=== PATIENT | female | born 1955 | race Hispanic/Latino ===

== ENCOUNTER 2021-03-29 23:37 | Inpatient (IN) | payer OTHER ==
[~2021-03-29] VITALS: Ht 160 cm; Wt 62.7 kg
[~2021-03-29 23:37] MED LIST: AMLO5TAB4 PO; DEXA6TAB PO; PANT40TA PO
[2021-03-30] VITALS (9 sets, daily range): BP systolic 142–177; BP diastolic 77–96
[2021-03-30] MEDS ORDERED: PANTOPRAZOLE 40 MG/VIAL IVP SCH (00:45)
[2021-03-30] MEDS ORDERED: ONDANSETRON HCL 4 MG/2 ML VIAL IVP SCH (00:45)
[2021-03-30] MEDS ORDERED: SODIUM CHLORIDE 0.9% 500ML 500 ML IV SCH (00:45)
[2021-03-30 01:00] LABS: BASOPHILS % (AUTO) 0.3 % (0.0-5.0); EOSINOPHILS % (AUTO) 2.4 % (0.0-8.0); HEMATOCRIT 22.1 % (36-48); LYMPHOCYTES % (AUTO) 18.7 % (21.0-51.0); MEAN CORPUSCULAR HEMOGLOBIN 26.5 pg (27.0-33.0); MEAN CORPUSCULAR HGB CONC 32.1 g/dL (32.0-36.0); MEAN CORPUSCULAR VOLUME 82.5 fL (79-99); MONOCYTES % (AUTO) 7.2 % (3.0-13.0); PLATELET COUNT (AUTO) 312 K/uL (130-400); RED BLOOD CELL COUNT(AUTO) 2.68 MIL/uL (4.00-5.50); WHITE BLOOD COUNT (AUTO) 9.2 K/uL (4.8-10.8)
[2021-03-30 01:06] LABS: CREATININE 4.7 mg/dL (0.5-1.5); POTASSIUM 4.8 mmol/L (3.5-5.1)
[2021-03-30 01:10] LABS: BILIRUBIN,TOTAL 0.2 mg/dL (0.2-1.0); MAGNESIUM 1.9 mg/dL (1.80-2.40); TOTAL PROTEIN, SERUM 6.8 g/dL (6.0-8.3)
[2021-03-30 01:14] LABS: APPEARANCE,URINE Clear (CLEAR); BILIRUBIN,URINE Negative (NEGATIVE); COLOR,URINE Yellow (YELLOW); GLUCOSE, URINE (UA) TRACE mg/dL (NEGATIVE); KETONES,URINE Negative (NEGATIVE); LEUKOCYTE ESTERASE ,URINE Negative (NEGATIVE); NITRATE,URINE Negative (NEGATIVE); OCCULT BLOOD,URINE Negative (NEGATIVE); PH,URINE 5.5 (5.0-8.0); PROTEIN,URINE 300 mg/dL (NEGATIVE); UROBILINOGEN,URINE 0.2 mg/dL (0.2-1.0)
[2021-03-30 01:43] LABS: BACTERIA,URINE Few /HPF (None Seen); RBC,URINE 0-1 /HPF (0-1); SQUAMOUS EPITHELIAL CELL,UR 0-2 /HPF (0-2); WBC,URINE 0-1 /HPF (0-1)
[2021-03-30 05:29] LABS: HEMATOCRIT 22.7 % (36-48); MEAN CORPUSCULAR HEMOGLOBIN 26.3 pg (27.0-33.0); MEAN CORPUSCULAR HGB CONC 32.2 g/dL (32.0-36.0); MEAN CORPUSCULAR VOLUME 81.7 fL (79-99); RED BLOOD CELL COUNT(AUTO) 2.78 MIL/uL (4.00-5.50); RED CELL DISTRIBUTION WIDTH 13.8 % (11.0-15.5)
[2021-03-30 05:49] LABS: ALBUMIN 1.8 g/dL (3.5-5.0); BILIRUBIN,TOTAL 0.2 mg/dL (0.2-1.0); CREATININE 4.1 mg/dL (0.5-1.5); POTASSIUM 4.4 mmol/L (3.5-5.1); TOTAL PROTEIN, SERUM 7.4 g/dL (6.0-8.3)
[2021-03-30] MEDS ORDERED: CEFTRIAXONE SODIUM 1 GM IVP SCH (08:55)
[2021-03-30] MEDS: FAMOTIDINE/PF 20 MG/2 ML VIAL IV SCH ×2 (09:00→20:31)
[2021-03-30] MEDS ORDERED: BACL10TA PO (10:36)
[2021-03-30] MEDS ORDERED: TRAM50TA4 PO (10:36)
[2021-03-30] MEDS ORDERED: AMLODIPINE BESYLATE 5 MG TAB PO SCH (11:15)
[2021-03-31] VITALS: BP 157/79
[2021-03-31 03:53] VITALS: BP 146/85
[2021-03-31 08:00] VITALS: BP 159/80
[2021-03-31 08:18] VITALS: BP 159/80
[2021-03-31] MEDS: AMLODIPINE BESYLATE 5 MG TAB PO SCH (08:21)
[2021-03-31] MEDS: PANTOPRAZOLE SODIUM 40 MG TABLET.DR PO SCH (08:21)
[2021-03-31] MEDS: FAMOTIDINE/PF 20 MG/2 ML VIAL IV SCH (08:21)
[2021-03-31] MEDS ORDERED: PREG150C PO (08:30)
[2021-03-31] MEDS ORDERED: INSLAN SQ (08:30)
[2021-03-31] MEDS ORDERED: LOSA1TAB54 PO (08:30)
[2021-03-31] MEDS ORDERED: DULA0.75 SQ (08:30)
[2021-03-31] MEDS ORDERED: ATOR40TA71 PO (08:30)
[2021-03-31 12:25] LABS: HEMATOCRIT 23.4 % (36-48); MEAN CORPUSCULAR HEMOGLOBIN 26.3 pg (27.0-33.0); MEAN CORPUSCULAR HGB CONC 32.5 g/dL (32.0-36.0); PLATELET COUNT (AUTO) 334 K/uL (130-400); RED BLOOD CELL COUNT(AUTO) 2.89 MIL/uL (4.00-5.50); RED CELL DISTRIBUTION WIDTH 13.6 % (11.0-15.5); WHITE BLOOD COUNT (AUTO) 8.6 K/uL (4.8-10.8)
[2021-03-31 12:53] LABS: % IRON SATURATION 27.5 % (22-44)
[2021-03-31] MEDS: DOCUSATE SODIUM 100 MG CAP PO SCH ×2 (13:01→20:28)
[2021-03-31] MEDS: BISACODYL 5 MG TABLET.DR PO SCH ×2 (13:01→20:28)
[2021-03-31 13:10] LABS: BAND NEUTROPHILS % (MANUAL) 1 % (0-2); LYMPHOCYTES % (MANUAL) 18 % (22-44); MAN.DIFF COMMENT-IMPRESSION MANUAL DIFFERENTIAL; MONOCYTES % (MANUAL) 7 % (2-9); PLATELET MORPHOLOGY COMMENT ADEQUATE; SEGMENTED NEUTROPHILS % 74 % (40-70)
[2021-03-31 13:30] LABS: THYROID STIMULATING HORMONE 2.48 uIU/mL (0.36-3.74)
[2021-03-31 16:00] VITALS: BP 118/75
[2021-03-31] MEDS ORDERED: COMPOUND IV MISC 1 EACH IVSOLN MISC PRN (18:00)
[2021-03-31] MEDS: IRON SUCROSE COMPLEX 300 MG in SODIUM CHLORIDE 0.9% 250 ML IV SCH (18:29)
[2021-03-31 20:00] VITALS: BP_SYST 148; BP_SYST 149; BP_DIAS 81; BP_DIAS 84
[2021-03-31] MEDS ORDERED: EPOETIN ALFA-EPBX (NON-ESRD) 10,000 UNIT/ML VIAL SQ ONE (21:00)
[2021-03-31] MEDS ORDERED: ACETAMINOPHEN 325 MG TAB ONE (23:40)
[2021-04-01] VITALS (7 sets, daily range): BP systolic 126–176; BP diastolic 73–86
[2021-04-01] MEDS: ACETAMINOPHEN 325 MG TAB PO PRN ×3 (04:34→23:46)
[2021-04-01 04:45] LABS: BASOPHILS % (AUTO) 0.3 % (0.0-5.0); HEMATOCRIT 25.3 % (36-48); LYMPHOCYTES % (AUTO) 24.3 % (21.0-51.0); MEAN CORPUSCULAR HEMOGLOBIN 25.9 pg (27.0-33.0); MEAN CORPUSCULAR HGB CONC 32.4 g/dL (32.0-36.0); MEAN CORPUSCULAR VOLUME 79.8 fL (79-99); NEUTROPHILS % (AUTO) 63.7 % (40.0-77.0); PLATELET COUNT (AUTO) 379 K/uL (130-400); RED BLOOD CELL COUNT(AUTO) 3.17 MIL/uL (4.00-5.50); RED CELL DISTRIBUTION WIDTH 13.5 % (11.0-15.5); WHITE BLOOD COUNT (AUTO) 9.1 K/uL (4.8-10.8)
[2021-04-01 04:57] LABS: ALBUMIN 1.9 g/dL (3.5-5.0); CREATININE 4.5 mg/dL (0.5-1.5); PHOSPHORUS 5.9 mg/dL (2.5-4.9); POTASSIUM 4.1 mmol/L (3.5-5.1)
[2021-04-01] MEDS: BISACODYL 5 MG TABLET.DR PO SCH ×2 (08:50→21:11)
[2021-04-01] MEDS: AMLODIPINE BESYLATE 5 MG TAB PO SCH (08:50)
[2021-04-01] MEDS: PANTOPRAZOLE SODIUM 40 MG TABLET.DR PO SCH (08:51)
[2021-04-01] MEDS: DOCUSATE SODIUM 100 MG CAP PO SCH ×2 (08:51→21:11)
[2021-04-01] MEDS ORDERED: EPOETIN ALFA-EPBX (NON-ESRD) 10,000 UNIT/ML VIAL SQ SCH (11:00)
[2021-04-01] MEDS: IRON SUCROSE COMPLEX 300 MG in SODIUM CHLORIDE 0.9% 250 ML IV SCH (13:42)
[2021-04-01] MEDS: INSULIN HUMULIN R 100 UNIT/ML 3ML SQ SCH ×2 (16:30→21:00)
[2021-04-01] MEDS: FAMOTIDINE 20MG TAB 20 MG TAB PO SCH (21:11)
[2021-04-02] VITALS (7 sets, daily range): BP systolic 120–182; BP diastolic 73–103
[2021-04-02 04:26] LABS: BASOPHILS % (AUTO) 0.4 % (0.0-5.0); EOSINOPHILS % (AUTO) 0.3 % (0.0-8.0); HEMATOCRIT 25.1 % (36-48); LYMPHOCYTES % (AUTO) 14.3 % (21.0-51.0); MEAN CORPUSCULAR HEMOGLOBIN 25.8 pg (27.0-33.0); MEAN CORPUSCULAR HGB CONC 32.7 g/dL (32.0-36.0); MEAN CORPUSCULAR VOLUME 78.9 fL (79-99); MONOCYTES % (AUTO) 5.8 % (3.0-13.0); NEUTROPHILS % (AUTO) 78.2 % (40.0-77.0); PLATELET COUNT (AUTO) 439 K/uL (130-400); RED BLOOD CELL COUNT(AUTO) 3.18 MIL/uL (4.00-5.50); RED CELL DISTRIBUTION WIDTH 13.6 % (11.0-15.5); WHITE BLOOD COUNT (AUTO) 11.3 K/uL (4.8-10.8)
[2021-04-02 04:42] LABS: CREATININE 4.7 mg/dL (0.5-1.5); POTASSIUM 4.3 mmol/L (3.5-5.1)
[2021-04-02 05:06] LABS: HEMOGLOBIN A1C 10.4 % (4.0-6.0)
[2021-04-02] MEDS: INSULIN HUMULIN R 100 UNIT/ML 3ML SQ SCH ×4 (07:30→20:14)
[2021-04-02] MEDS ORDERED: NON-FORMULARY MEDICATION 1 EACH (Losartan/Hydrochlorothiazide (Losartan-Hctz 100-25 mg Tab PO SCH (09:00)
[2021-04-02] MEDS: LIDOCAINE 5% TOPICAL PATCH TP SCH (09:26)
[2021-04-02] MEDS: DOCUSATE SODIUM 100 MG CAP PO SCH (09:26)
[2021-04-02] MEDS: BISACODYL 5 MG TABLET.DR PO SCH (09:26)
[2021-04-02] MEDS: AMLODIPINE BESYLATE 5 MG TAB PO SCH (09:26)
[2021-04-02] MEDS: METOPROLOL TARTRATE 25 MG TAB PO SCH ×2 (12:08→20:13)
[2021-04-02] MEDS: HYDRALAZINE HCL 10 MG TABLET PO SCH ×2 (15:14→20:14)
[2021-04-02] MEDS: FAMOTIDINE 20MG TAB 20 MG TAB PO SCH (20:14)
[2021-04-03] VITALS (21 sets, daily range): BP systolic 104–157; BP diastolic 65–81
[2021-04-03 04:31] LABS: BASOPHILS % (AUTO) 0.4 % (0.0-5.0); EOSINOPHILS % (AUTO) 2.2 % (0.0-8.0); HEMATOCRIT 21.7 % (36-48); LYMPHOCYTES % (AUTO) 31.6 % (21.0-51.0); MEAN CORPUSCULAR HEMOGLOBIN 26.2 pg (27.0-33.0); MEAN CORPUSCULAR HGB CONC 31.8 g/dL (32.0-36.0); MEAN CORPUSCULAR VOLUME 82.5 fL (79-99); MONOCYTES % (AUTO) 9.6 % (3.0-13.0); NEUTROPHILS % (AUTO) 54.4 % (40.0-77.0); NUCLEATED RED BLOOD CELLS 0.4 % (0.0-0.19); PLATELET COUNT (AUTO) 389 K/uL (130-400); RED BLOOD CELL COUNT(AUTO) 2.63 MIL/uL (4.00-5.50); RED CELL DISTRIBUTION WIDTH 14.2 % (11.0-15.5); WHITE BLOOD COUNT (AUTO) 9.1 K/uL (4.8-10.8)
[2021-04-03 04:49] LABS: CREATININE 4.8 mg/dL (0.5-1.5); POTASSIUM 3.7 mmol/L (3.5-5.1)
[2021-04-03] MEDS: INSULIN HUMULIN R 100 UNIT/ML 3ML SQ SCH ×4 (05:59→21:00)
[2021-04-03] MEDS ORDERED: SODIUM CHLORIDE 0.9% 250 ML ONE (09:41)
[2021-04-03] MEDS: METOPROLOL TARTRATE 25 MG TAB PO SCH ×2 (09:45→23:04)
[2021-04-03] MEDS: AMLODIPINE BESYLATE 5 MG TAB PO SCH (09:45)
[2021-04-03] MEDS: LIDOCAINE 5% TOPICAL PATCH TP SCH (09:46)
[2021-04-03] MEDS: HYDRALAZINE HCL 10 MG TABLET PO SCH ×3 (09:46→23:04)
[2021-04-03] MEDS ORDERED: PEG 3350/NA SULF,BICARB,CL/KCL 4000 ML SOLN PO SCH (14:15)
[2021-04-03] MEDS: ONDANSETRON HCL 4 MG/2 ML VIAL IV PRN (14:44)
[2021-04-03] MEDS ORDERED: LIDOCAINE HCL 1% MDV 50ML VIAL ONE (14:52)
[2021-04-03 16:09] LABS: HEMATOCRIT 27.6 % (36-48)
[2021-04-03] MEDS ORDERED: HEPARIN SODIUM 5000UNIT/ML 1ML VIAL ONE (18:04)
[2021-04-03] MEDS ORDERED: HEPARIN SODIUM 5000UNIT/ML 1ML VIAL SQ PRN (18:15)
[2021-04-03] MEDS: ACETAMINOPHEN 325 MG TAB PO PRN (19:28)
[2021-04-03] MEDS: FAMOTIDINE 20MG TAB 20 MG TAB PO SCH (23:04)
[2021-04-04] VITALS (33 sets, daily range): BP systolic 81–177; BP diastolic 42–96
[2021-04-04] MEDS: ONDANSETRON HCL 4 MG/2 ML VIAL IV PRN ×2 (03:00→10:35)
[2021-04-04 04:03] LABS: BASOPHILS % (AUTO) 0.7 % (0.0-5.0); EOSINOPHILS % (AUTO) 1.4 % (0.0-8.0); HEMATOCRIT 31.3 % (36-48); LYMPHOCYTES % (AUTO) 16.9 % (21.0-51.0); MEAN CORPUSCULAR HEMOGLOBIN 26.6 pg (27.0-33.0); MEAN CORPUSCULAR HGB CONC 32.3 g/dL (32.0-36.0); MEAN CORPUSCULAR VOLUME 82.4 fL (79-99); NEUTROPHILS % (AUTO) 70.4 % (40.0-77.0); NUCLEATED RED BLOOD CELLS 0.9 % (0.0-0.19); PLATELET COUNT (AUTO) 473 K/uL (130-400); RED CELL DISTRIBUTION WIDTH 13.9 % (11.0-15.5); WHITE BLOOD COUNT (AUTO) 12.9 K/uL (4.8-10.8)
[2021-04-04 04:28] LABS: CREATININE 3.9 mg/dL (0.5-1.5); PHOSPHORUS 4.5 mg/dL (2.5-4.9); POTASSIUM 3.8 mmol/L (3.5-5.1)
[2021-04-04] MEDS: INSULIN HUMULIN R 100 UNIT/ML 3ML SQ SCH ×4 (07:30→20:09)
[2021-04-04 08:50] LABS: HEMATOCRIT 27.8 % (36-48)
[2021-04-04] MEDS: LIDOCAINE 5% TOPICAL PATCH TP SCH (09:43)
[2021-04-04] MEDS: HYDRALAZINE HCL 10 MG TABLET PO SCH ×3 (09:43→20:58)
[2021-04-04] MEDS: METOPROLOL TARTRATE 25 MG TAB PO SCH ×2 (09:43→20:58)
[2021-04-04] MEDS: AMLODIPINE BESYLATE 5 MG TAB PO SCH (09:43)
[2021-04-04] MEDS ORDERED: LIDOCAINE HCL-MPF 2% 5ML VIAL ONE (11:25)
[2021-04-04] MEDS ORDERED: PROPOFOL 10 MG/ML 20ML VIAL IV ONE ×2 (11:25)
[2021-04-04] MEDS: SODIUM CHLORIDE 0.9% 1000ML 1,000 ML IV SCH (11:30)
[2021-04-04] MEDS ORDERED: EPHEDRINE SULFATE 50 MG/ML AMPULE ONE (12:07)
[2021-04-04 13:53] LABS: HEMATOCRIT 26.3 % (36-48)
[2021-04-05] VITALS (22 sets, daily range): BP systolic 110–149; BP diastolic 57–92
[2021-04-05 03:43] LABS: BASOPHILS % (AUTO) 0.5 % (0.0-5.0); HEMATOCRIT 25.5 % (36-48); LYMPHOCYTES % (AUTO) 20.4 % (21.0-51.0); MEAN CORPUSCULAR HEMOGLOBIN 26.2 pg (27.0-33.0); MEAN CORPUSCULAR HGB CONC 32.2 g/dL (32.0-36.0); MEAN CORPUSCULAR VOLUME 81.5 fL (79-99); MONOCYTES % (AUTO) 10.4 % (3.0-13.0); NEUTROPHILS % (AUTO) 65.7 % (40.0-77.0); NUCLEATED RED BLOOD CELLS 0.6 % (0.0-0.19); PLATELET COUNT (AUTO) 313 K/uL (130-400); RED BLOOD CELL COUNT(AUTO) 3.13 MIL/uL (4.00-5.50)
[2021-04-05 04:02] LABS: CREATININE 3.1 mg/dL (0.5-1.5); PHOSPHORUS 5.4 mg/dL (2.5-4.9); POTASSIUM 3.9 mmol/L (3.5-5.1)
[2021-04-05] MEDS: INSULIN HUMULIN R 100 UNIT/ML 3ML SQ SCH ×4 (06:37→21:00)
[2021-04-05] MEDS: SODIUM CHLORIDE 0.9% 1000ML 1,000 ML IV SCH (07:30)
[2021-04-05 08:14] LABS: HEPATITIS Bs ANTIGEN SCREEN P Negative (Negative)
[2021-04-05] MEDS: LIDOCAINE 5% TOPICAL PATCH TP SCH (09:54)
[2021-04-05] MEDS: AMLODIPINE BESYLATE 5 MG TAB PO SCH (09:55)
[2021-04-05] MEDS: METOPROLOL TARTRATE 25 MG TAB PO SCH ×2 (09:55→21:41)
[2021-04-05] MEDS: HYDRALAZINE HCL 10 MG TABLET PO SCH ×3 (09:55→21:41)
[2021-04-05] MEDS: PANTOPRAZOLE SODIUM 40 MG TABLET.DR PO SCH (09:55)
[2021-04-06 03:55] VITALS: BP 152/86
[2021-04-06] MEDS ORDERED: HYDROXYZINE HCL 25 MG TABLET ONE (04:54)
[2021-04-06] MEDS: HYDROXYZINE HCL 25 MG TABLET PO SCH ×2 (05:00→23:47)
[2021-04-06 05:02] LABS: BASOPHILS % (AUTO) 0.5 % (0.0-5.0); EOSINOPHILS % (AUTO) 0.9 % (0.0-8.0); HEMATOCRIT 28.7 % (36-48); LYMPHOCYTES % (AUTO) 20.8 % (21.0-51.0); MEAN CORPUSCULAR HEMOGLOBIN 26.8 pg (27.0-33.0); MEAN CORPUSCULAR HGB CONC 32.8 g/dL (32.0-36.0); MEAN CORPUSCULAR VOLUME 81.8 fL (79-99); MONOCYTES % (AUTO) 10.8 % (3.0-13.0); NEUTROPHILS % (AUTO) 64.8 % (40.0-77.0); NUCLEATED RED BLOOD CELLS 0.3 % (0.0-0.19); PLATELET COUNT (AUTO) 311 K/uL (130-400); RED BLOOD CELL COUNT(AUTO) 3.51 MIL/uL (4.00-5.50); RED CELL DISTRIBUTION WIDTH 14.1 % (11.0-15.5); WHITE BLOOD COUNT (AUTO) 11.9 K/uL (4.8-10.8)
[2021-04-06] MEDS: INSULIN HUMULIN R 100 UNIT/ML 3ML SQ SCH ×4 (05:27→21:00)
[2021-04-06 05:30] LABS: CREATININE 3.1 mg/dL (0.5-1.5); PHOSPHORUS 4.1 mg/dL (2.5-4.9); POTASSIUM 4.1 mmol/L (3.5-5.1)
[2021-04-06 07:16] VITALS: BP 116/71
[2021-04-06] MEDS: ACETAMINOPHEN 325 MG TAB PO PRN (09:00)
[2021-04-06] MEDS: LIDOCAINE 5% TOPICAL PATCH TP SCH (09:00)
[2021-04-06] MEDS: PANTOPRAZOLE SODIUM 40 MG TABLET.DR PO SCH (09:00)
[2021-04-06] MEDS: HYDRALAZINE HCL 10 MG TABLET PO SCH ×3 (09:00→21:35)
[2021-04-06] MEDS: AMLODIPINE BESYLATE 5 MG TAB PO SCH (09:01)
[2021-04-06] MEDS: METOPROLOL TARTRATE 25 MG TAB PO SCH ×2 (09:01→21:34)
[2021-04-06 11:16] VITALS: BP 91/59
[2021-04-06 15:57] VITALS: BP 125/67
[2021-04-06 19:55] VITALS: BP 148/83
[2021-04-06] MEDS: SODIUM CHLORIDE 0.9% 1000ML 1,000 ML IV SCH (23:30)
[2021-04-06 23:37] VITALS: BP 111/71
[2021-04-07 03:55] VITALS: BP 104/74
[2021-04-07 05:29] LABS: BASOPHILS % (AUTO) 0.8 % (0.0-5.0); EOSINOPHILS % (AUTO) 1.2 % (0.0-8.0); HEMATOCRIT 30.1 % (36-48); LYMPHOCYTES % (AUTO) 24.7 % (21.0-51.0); MEAN CORPUSCULAR HGB CONC 32.9 g/dL (32.0-36.0); MONOCYTES % (AUTO) 9.5 % (3.0-13.0); NEUTROPHILS % (AUTO) 61.3 % (40.0-77.0); NUCLEATED RED BLOOD CELLS 0.2 % (0.0-0.19); PLATELET COUNT (AUTO) 354 K/uL (130-400); RED BLOOD CELL COUNT(AUTO) 3.67 MIL/uL (4.00-5.50); RED CELL DISTRIBUTION WIDTH 14.5 % (11.0-15.5); WHITE BLOOD COUNT (AUTO) 11.9 K/uL (4.8-10.8)
[2021-04-07 05:32] LABS: CREATININE 4.7 mg/dL (0.5-1.5); POTASSIUM 4.2 mmol/L (3.5-5.1)
[2021-04-07] MEDS: INSULIN HUMULIN R 100 UNIT/ML 3ML SQ SCH ×2 (06:03→11:57)
[2021-04-07 07:52] VITALS: BP 114/70
[2021-04-07] MEDS: HYDRALAZINE HCL 10 MG TABLET PO SCH (09:12)
[2021-04-07] MEDS: AMLODIPINE BESYLATE 5 MG TAB PO SCH (09:12)
[2021-04-07] MEDS: PANTOPRAZOLE SODIUM 40 MG TABLET.DR PO SCH (09:12)
[2021-04-07] MEDS: METOPROLOL TARTRATE 25 MG TAB PO SCH (09:12)
[2021-04-07] MEDS ORDERED: METO25TA6 PO (10:48)
[2021-04-07 11:33] VITALS: BP 126/74
[2021-04-07 15:46] VITALS: BP 141/81
== END 2021-04-07 17:52 | disposition home or self-care (01) | DRG 682 ==
LOC: EDH 03-30 00:38 → EDHIP 03-30 00:39 → UNDOADMIN 03-30 04:08 → 4BH 03-30 08:17 → 4AH 03-30 21:03 → 4CH 04-01 20:12
PROVIDERS: ADMIT Internal Medicine; ATTEND Internal Medicine
PROC: 30233N1 Transfusion of Nonautologous Red Blood Cells into Peripheral Vein, Percutaneous Approach (ICD-10-PCS; principal; 2021-04-03)
PROC: 02H633Z Insertion of Infusion Device into Right Atrium, Percutaneous Approach (ICD-10-PCS; 2021-04-03)
PROC: B5181ZA Fluoroscopy of Superior Vena Cava using Low Osmolar Contrast, Guidance (ICD-10-PCS; 2021-04-03)
PROC: B548ZZA Ultrasonography of Superior Vena Cava, Guidance (ICD-10-PCS; 2021-04-03)
PROC: 5A1D70Z Performance of Urinary Filtration, Intermittent, Less than 6 Hours Per Day (ICD-10-PCS; 2021-04-04)
PROC: 0DJD8ZZ Inspection of Lower Intestinal Tract, Via Natural or Artificial Opening Endoscopic (ICD-10-PCS; 2021-04-04)
PROC: 0DJ08ZZ Inspection of Upper Intestinal Tract, Via Natural or Artificial Opening Endoscopic (ICD-10-PCS; 2021-04-04)
PROC: 5A1D70Z Performance of Urinary Filtration, Intermittent, Less than 6 Hours Per Day (ICD-10-PCS; 2021-04-06)
PROC: 5A1D70Z Performance of Urinary Filtration, Intermittent, Less than 6 Hours Per Day (ICD-10-PCS; 2021-04-07)
DX: N17.9 Acute kidney failure, unspecified (principal); E43 Unspecified severe protein-calorie malnutrition; I12.0 Hypertensive chronic kidney disease with stage 5 chronic kidney disease or end stage renal disease; G93.40 Encephalopathy, unspecified; D62 Acute posthemorrhagic anemia; N18.6 End stage renal disease; K44.9 Diaphragmatic hernia without obstruction or gangrene; E11.22 Type 2 diabetes mellitus with diabetic chronic kidney disease; D64.9 Anemia, unspecified; E78.5 Hyperlipidemia, unspecified; G47.10 Hypersomnia, unspecified; T50.905A Adverse effect of unspecified drugs, medicaments and biological substances, initial encounter; Y92.89 Other specified places as the place of occurrence of the external cause; Z86.16 Personal history of COVID-19; Z82.3 Family history of stroke; Z83.3 Family history of diabetes mellitus; Z84.1 Family history of disorders of kidney and ureter; Z82.49 Family history of ischemic heart disease and other diseases of the circulatory system
CPT/HCPCS: 36415; 36556; 43235; 45378; 70450; 71045; 71046; 74176; 77001; 80048; 80053; 80069; 81001; 82140; 82270; 82550; 82607; 82728; 82746; 82948; 83036; 83540; 83550; 83690; 83735; 84100; 84145; 84443; 84484; 85014; 85018; 85025; 85027; 85045; 86334; 86704; 86706; 86850; 86900; 86901; 86923; 87088; 87340; 90935; 93005; 97039; A4606; C1752; C9113; G0378; J0696; J1644; J1756; J1815; J2405; J2704; J3490; J7030; J7050; P9016